=== PATIENT | female | born 1985 | race Caucasian/White ===

== ENCOUNTER 2017-01-17 05:51 | Emergency (ER) | payer OTHER ==
[~2017-01-17] VITALS: Ht 167.6 cm; Wt 120.5 kg
[2017-01-17 05:58] VITALS: BP 142/98; PULSE 86; RESP 16; TEMP 98.5; O2SAT 100
[2017-01-17] MEDS ORDERED: ALPR.25 PO (06:02)
[2017-01-17] MEDS ORDERED: CLIN1CAP6 PO (06:19)
--- NOTE | 2017-01-17 06:20 | PD ---
HPI Chief Complaint: ENT Complaint Time Seen by Provider: 06:11 Travel History International Travel<30 days: No Contact w/Intl Traveler<30days: No Traveled to known affect area: No History of Present Illness HPI Patient is a 31-year-old female presenting to emergency for evaluation of right ear pain and a sore throat. Patient states it started on Tuesday after her flight into town. She states the pain is shooting and stabbing in nature in her ear, her throat feels irritated but she denies any dysphasia. Patient states the pain in her ear is a 6 out of 10. She denies any other complaints at this time. [facility] Past Medical History Medical History: Denies Significant Hx Tetanus Vaccination: < 5 Years ?: Not LMP: 12/22/2016 Dilation and Curettage (D&C): Yes Social History Alcohol Use: Yes (OCC) Tobacco Use: No Substance Use: No Allergies-Medications Reported Meds & Prescriptions Reported Meds & Active Scripts Active Reported Xanax (Alprazolam) 0.25 Mg Tab 0.25 Mg PO HS PRN Review of Systems Except as stated in HPI: all other systems reviewed are Neg General / Constitutional: No: Fever HENT: Positive: Sore Throat, Earache, No: Congestion Respiratory: No: Cough Physical Exam Narrative GENERAL: Well-developed, well-nourished, alert female. Resting comfortably in no acute distress. SKIN: Warm and dry. HEAD: Normocephalic. EYES: No scleral icterus. No injection or drainage. ENT: Mucosa pink and moist. Mild erythema to posterior pharynx, no exudates. No uvular edema. No uvular, palatal, or tonsillar deviation. Airway patent. Nasal turbinates appear normal without nasal blood, purulent drainage or septal hematoma. EARS: Bilateral pinnae and external canals appear within normal limits. Bilateral tympanic membranes without erythema, dullness or perforation. NECK: Supple, trachea midline. No JVD or lymphadenopathy. CARDIOVASCULAR: Regular rate and rhythm without murmurs, gallops, or rubs. RESPIRATORY: Breath sounds equal bilaterally. No accessory muscle use. GASTROINTESTINAL: Abdomen soft, non-tender, nondistended. MUSCULOSKELETAL: No cyanosis, or edema. BACK: Nontender without obvious deformity. No CVA tenderness. Data Data Last Documented VS Vital Signs Date Time Temp Pulse Resp B/P (MAP) Pulse Ox O2 Delivery O2 Flow Rate FiO2 01/17/17 05:58 98.5 86 16 142/98 (113) 100 Room Air MDM Medical Decision Making Medical Screen Exam Complete: Yes Emergency Medical Condition: Yes Interpretation(s) Vital Signs Date Time Temp Pulse Resp B/P (MAP) Pulse Ox O2 Delivery O2 Flow Rate FiO2 01/17/17 05:58 98.5 86 16 142/98 (113) 100 Room Air Differential Diagnosis URI versus otitis media versus otitis externa versus pharyngitis versus other Narrative Course Patient's 31-year-old female presenting for evaluation of right ear pain and sore throat. Patient's vital signs are stable, she is afebrile. Physical examination in regards to her ears is unremarkable. Patient has mild erythema noted to the posterior pharynx. She did report that when she swallows the pain shoots up to her ear. Likely the pain is more related to pharyngitis then otitis media. Patient will be provided with a prescription for antibiotics, she is encouraged to follow-up with her primary doctor. She was encouraged to return to emergency department for any new or worsening symptoms. Patient verbalized understanding of instructions. Patient is stable for discharge. Diagnosis Primary Impression: Pharyngitis Qualified Codes: J02.9 - Acute pharyngitis, unspecified Additional Impression: Ear pain, right Referrals: Primary Care Physician Patient Instructions: General Instructions, Pharyngitis (ED) Additional Instructions: Follow-up with your primary doctor Complete full course of antibiotics as prescribed Return to emergency department for any new or worsening symptoms Med/Other Pt SpecificInfo: Prescription(s) given Scripts Clindamycin (Clindamycin) 300 Mg Cap 300 MG PO TID for Infection for 10 Days, CAP 0 Refills Prov: Angie Rehman 01/17/17 Disposition: 01 DISCHARGE HOME Condition: Stable Angie Rehman Jan 17, 2017 06:20
== END 2017-01-17 19:49 | disposition home or self-care (01) ==
LOC: NEPD 05:51
DX: J02.9 Acute pharyngitis, unspecified (principal); H92.01 Otalgia, right ear
CPT/HCPCS: 99283